=== PATIENT | female | born 1940 | race Caucasian/White ===

== ENCOUNTER 2016-10-06 09:44 | Inpatient (IN) | payer OTHER ==
[~2016-10-06] VITALS: Ht 160 cm; Wt 75.3 kg
[2016-10-06] VITALS (10 sets, daily range): BP systolic 102–216; BP diastolic 50–93
[~2016-10-06 09:44] MED LIST: ACTOPLUS MET1 TABLET PO; ADULT LOW DOSE81 M1 PO; ALDACTONE25 MG PO; ANTIVERT25 MG PO; APRESOLINE50 M1 PO; ASPIR 8181 M1 PO; Ascorbic Acid,Ester- PO; CALCIUM 600 +1 EA12 PO; CALCIUM 600 WI1 EAC1 PO; CATAPRES0.2 MG PO; CATAPRES0.3 MG PO; CENTRUM SILVER1 EACH PO; CIPRO500 MG PO; CLONIDINE HCL0.1 MG PO; COREG CR80 MG PO; CRANBERRY200 MG PO; CRANBERRY500 M1 PO; Colace PO; Coreg PO; Dulcolax PO; ENDOCET 5-3251 EACH PO; FOLVITE1 M1 PO; Feosol PO; Glucophage PO; HYDRALAZINE HCL25 M1 PO; HYDRALAZINE HCL25 MG PO; LIPITOR80 MG PO; LOTREL 10/41 CAPSULE PO; LOVENOX40 MG/0.4 SC; PLAVIX75 MG PO; PROTONIX40 MG PO; SENOKOT S,PE1 TABLET PO; SPIRONOLACTONE25 MG PO; TEGRETOL XR400 MG PO; TEGRETOL-XR,CA400 MG PO; TEGretol-XR,Carbatro PO; TEKTURNA HCT1 TABLE3 PO; THERAGRAN1 TABLET PO; ZETIA10 MG PO; ZOLOFT100 MG PO; ZOLOFT50 M1 PO; ZOLOFT50 MG PO; Zoloft PO; [UNRECOGNIZED DRUG - OTHER] PO
[2016-10-06 10:30] LABS: HEMATOCRIT 30.2 % (36.0-46.0); MCH 30.7 PG (29.0-34.0); MCHC 33.1 G/DL (30.0-36.0); MCV 92.6 FL (83-99); MEAN PLAT.VOLUME 7.8 uM^3 (9.5-12.4); PLATELET COUNT 182 K/uL (156-360); RBC DIS.WIDTH-CV 15.1 % (11.8-14.6); RBC DIS.WIDTH-SD 51.1 % (39-53); RED BLOOD COUNT 3.26 M/uL (3.80-5.20); WHITE BLOOD COUNT 3.3 K/uL (4.1-10.2)
[2016-10-06 10:39] LABS: CHLORIDE 96 mEq/L (99-109); POTASSIUM 4.1 mEq/L (3.7-5.4); SODIUM 130 mEq/L (136-147)
[2016-10-06 10:40] LABS: GLUCOSE 97 mg/dL (70-99)
[2016-10-06 10:42] LABS: ANION GAP 9 MEQ/L (2-14)
[2016-10-06 10:44] LABS: GFR ESTIMATE (CALCULATED) > 59 mL/min/
[2016-10-06 10:45] LABS: UREA NITROGEN (BUN) 16 mg/dL (9-23)
[2016-10-06 10:51] LABS: TROP-I INTERPRETATION NEGATIVE; TROPONIN-I < 0.01 ng/mL (0.0-0.30)
[2016-10-06 11:59] LABS: ADD MIUA? NO; BILIRUBIN NEGATIVE; BLOOD NEGATIVE; COLOR YELLOW ((YELLOW)); GLUCOSE (STRIP) NEGATIVE; KETONES NEGATIVE; LEUKOCYTES NEGATIVE; NITRITE NEGATIVE; PROTEIN (STRIP) NEGATIVE; SPECIFIC GRAVITY 1.011 (1.000-1.030); UCUL ADDED? NO; UROBILINOGEN 0.2 MG/DL (0.2-1.0)
[2016-10-06 15:41] LABS: METH RESISTANT S AUREUS PCR NEGATIVE (NEGATIVE); PROBE CHECK PASS; SPECIMEN PROCESSING CONTROL PASS
[2016-10-07] VITALS (18 sets, daily range): BP systolic 91–142; BP diastolic 48–92
[2016-10-07 07:07] LABS: EOSINOPHIL (%) 0 % (0-5); HEMATOCRIT 30.3 % (36.0-46.0); IMMATURE GRANULOCYTE (%) 0.4 % (0.0-0.7); INSTRUMENT ABS NEUTROPHIL CT 3.5 K/uL; LYMPHOCYTE COUNT 0.5 K/uL (1.0-2.8); MCH 30.1 PG (29.0-34.0); MCHC 32.7 G/DL (30.0-36.0); MCV 92.1 FL (83-99); MEAN PLAT.VOLUME 7.9 uM^3 (9.5-12.4); MONOCYTE (%) 13.1 % (3-12); MONOCYTE COUNT 0.6 K/uL (0-0.8); NEUTROPHIL (%) 74.9 % (45-76); NEUTROPHIL COUNT 3.5 K/uL (1.8-6.4); PLATELET COUNT 148 K/uL (156-360); RBC DIS.WIDTH-CV 15.3 % (11.8-14.6); RBC DIS.WIDTH-SD 50.6 % (39-53); RED BLOOD COUNT 3.29 M/uL (3.80-5.20); WHITE BLOOD COUNT 4.7 K/uL (4.1-10.2)
[2016-10-07 07:29] LABS: ALKALINE PHOSPHATASE 57 IU/L (3-129); ANION GAP 8 MEQ/L (2-14); CHLORIDE 97 MEQ/L (99-109); GFR ESTIMATE (CALCULATED) > 59 mL/min/; GLUCOSE 97 mg/dL (70-99); POTASSIUM 3.7 MEQ/L (3.7-5.4); SAMPLE HEMOLYSIS CHECK 0; SAMPLE ICTERIC CHECK 0; SAMPLE LIPEMIA CHECK 0; SODIUM 132 MEQ/L (136-147); TOTAL BILIRUBIN 0.4 MG/DL (0.0-1.0); UREA NITROGEN (BUN) 13 mg/dL (9-23)
[2016-10-08 00:03] VITALS: BP 141/65
[2016-10-08 08:15] VITALS: BP 150/69
[2016-10-08 11:58] VITALS: BP 120/55
[2016-10-09] MEDS ORDERED: MICROZIDE12.5 M1 PO (00:03)
== END 2016-10-08 14:22 | disposition home or self-care (01) | DRG 83 ==
LOC: EME → EDBD 09:44 → EME 09:44 → 4WEST 12:18 → EDOF 12:18 → ENRESERV 12:30 → 4WEST 13:54 → ENRESERV 10-07 17:21 → 3EAST 10-07 19:37
PROVIDERS: Emergency Medicine; Internal Medicine Critical Care Medicine
DX: S06.5X9A Traumatic subdural hemorrhage with loss of consciousness of unspecified duration, initial encounter (principal); E11.9 Type 2 diabetes mellitus without complications; E87.1 Hypo-osmolality and hyponatremia; G40.909 Epilepsy, unspecified, not intractable, without status epilepticus; I10 Essential (primary) hypertension; E78.5 Hyperlipidemia, unspecified; I25.10 Atherosclerotic heart disease of native coronary artery without angina pectoris; K21.9 Gastro-esophageal reflux disease without esophagitis; S61.411A Laceration without foreign body of right hand, initial encounter; W10.9XXA Fall (on) (from) unspecified stairs and steps, initial encounter; Z79.02 Long term (current) use of antithrombotics/antiplatelets; Z79.82 Long term (current) use of aspirin; Z82.49 Family history of ischemic heart disease and other diseases of the circulatory system; Z85.42 Personal history of malignant neoplasm of other parts of uterus; Z87.891 Personal history of nicotine dependence; Z92.3 Personal history of irradiation; Z95.5 Presence of coronary angioplasty implant and graft; M54.2 Cervicalgia; R07.9 Chest pain, unspecified; M25.551 Pain in right hip; M54.5 Low back pain
CPT/HCPCS: 70450; 71010; 72220; 73130; 80048; 80053; 81003; 84484; 85025; 85027; 87641; 93005; 99281; 99285; J2270

== ENCOUNTER 2016-10-08 18:34 | Observation (INO) | payer OTHER ==
[~2016-10-08] VITALS: Ht 160 cm; Wt 65.1 kg
[2016-10-08 19:04] LABS: EOSINOPHIL (%) 0 % (0-5); HEMATOCRIT 31.3 % (36.0-46.0); IMMATURE GRANULOCYTE (%) 0.7 % (0.0-0.7); IMMATURE GRANULOCYTE COUNT 0.1 K/uL; INSTRUMENT ABS NEUTROPHIL CT 6.2 K/uL; LYMPHOCYTE COUNT 0.6 K/uL (1.0-2.8); MCH 30.6 PG (29.0-34.0); MCHC 33.5 G/DL (30.0-36.0); MCV 91.3 FL (83-99); MEAN PLAT.VOLUME 8.1 uM^3 (9.5-12.4); MONOCYTE (%) 10.7 % (3-12); MONOCYTE COUNT 0.8 K/uL (0-0.8); NEUTROPHIL (%) 81.1 % (45-76); NEUTROPHIL COUNT 6.2 K/uL (1.8-6.4); PLATELET COUNT 155 K/uL (156-360); RBC DIS.WIDTH-CV 14.9 % (11.8-14.6); RBC DIS.WIDTH-SD 49.6 % (39-53); RED BLOOD COUNT 3.43 M/uL (3.80-5.20); WHITE BLOOD COUNT 7.6 K/uL (4.1-10.2)
[2016-10-08 19:13] LABS: INTER. NORMALIZED RATIO 1.1; PROTHROMBIN TIME 12.5 SEC (10.2-12.9)
[2016-10-08 19:15] LABS: CHLORIDE 96 mEq/L (99-109); POTASSIUM 3.6 mEq/L (3.7-5.4); SODIUM 130 mEq/L (136-147)
[2016-10-08 19:19] LABS: ANION GAP 10 MEQ/L (2-14); TOTAL BILIRUBIN 0.3 mg/dL (0.0-1.0)
[2016-10-08 19:21] LABS: ALKALINE PHOSPHATASE 64 IU/L (3-129); GFR ESTIMATE (CALCULATED) > 59 mL/min/
[2016-10-08 19:23] LABS: DIRECT BILIRUBIN 0.2 mg/dL (0.0-0.3)
[2016-10-08 19:27] LABS: GLUCOSE 171 mg/dL (70-99); TROP-I INTERPRETATION NEGATIVE; TROPONIN-I < 0.01 ng/mL (0.0-0.30); UREA NITROGEN (BUN) 22 mg/dL (9-23)
[2016-10-08 21:53] LABS: ADD MIUA? NO; BILIRUBIN NEGATIVE; BLOOD NEGATIVE; COLOR YELLOW ((YELLOW)); GLUCOSE (STRIP) 50; KETONES NEGATIVE; LEUKOCYTES NEGATIVE; NITRITE NEGATIVE; PROTEIN (STRIP) NEGATIVE; SPECIFIC GRAVITY 1.011 (1.000-1.030); UCUL ADDED? NO; UROBILINOGEN 0.2 MG/DL (0.2-1.0)
[2016-10-08 23:27] VITALS: BP 147/67
[2016-10-09] MEDS ORDERED: MICROZIDE12.5 M1 PO (00:03)
[2016-10-09 04:00] VITALS: BP 160/70
[2016-10-09 07:19] VITALS: BP 163/74
== END 2016-10-09 11:52 | disposition home or self-care (01) ==
LOC: EME 18:34 → EDOF 22:00 → 5WEST 22:00 → EDOF 22:00 → ENRESERV 22:03 → 5WEST 23:09
PROVIDERS: Emergency Medicine
DX: R55 Syncope and collapse (principal); G40.909 Epilepsy, unspecified, not intractable, without status epilepticus; S06.5X0D Traumatic subdural hemorrhage without loss of consciousness, subsequent encounter; I10 Essential (primary) hypertension; E11.9 Type 2 diabetes mellitus without complications; I25.10 Atherosclerotic heart disease of native coronary artery without angina pectoris; Z95.5 Presence of coronary angioplasty implant and graft; E87.1 Hypo-osmolality and hyponatremia; Z85.42 Personal history of malignant neoplasm of other parts of uterus; Z92.3 Personal history of irradiation; Z86.718 Personal history of other venous thrombosis and embolism; Z87.891 Personal history of nicotine dependence
CPT/HCPCS: 70450; 71020; 80048; 80076; 81003; 83880; 84484; 85025; 85610; 85730; 93005; 99281; 99285; G0378; J7030

== ENCOUNTER 2016-10-19 22:28 | Observation (INO) | payer OTHER ==
[~2016-10-19] VITALS: Ht 160 cm; Wt 68.4 kg
[~2016-10-19 22:28] MED LIST changes: +MICROZIDE12.5 M1 PO
[2016-10-19 23:32] LABS: HEMATOCRIT 29.3 % (36.0-46.0); MCH 30.6 PG (29.0-34.0); MCHC 33.1 G/DL (30.0-36.0); MCV 92.4 FL (83-99); MEAN PLAT.VOLUME 7.6 uM^3 (9.5-12.4); PLATELET COUNT 190 K/uL (156-360); RBC DIS.WIDTH-CV 15.1 % (11.8-14.6); RBC DIS.WIDTH-SD 51.2 % (39-53); RED BLOOD COUNT 3.17 M/uL (3.80-5.20); WHITE BLOOD COUNT 5.5 K/uL (4.1-10.2)
[2016-10-19 23:41] LABS: CHLORIDE 97 mEq/L (99-109); POTASSIUM 3.9 mEq/L (3.7-5.4); SODIUM 131 mEq/L (136-147)
[2016-10-19 23:44] LABS: ANION GAP 10 MEQ/L (2-14); GLUCOSE 96 mg/dL (70-99)
[2016-10-19] MEDS ORDERED: ACTOPLUS MET1 TABLET PO (23:46)
[2016-10-19] MEDS ORDERED: TEGRETOL-XR,CA400 MG PO (23:46)
[2016-10-19] MEDS ORDERED: ZOLOFT100 MG PO (23:46)
[2016-10-19] MEDS ORDERED: ZETIA10 MG PO (23:46)
[2016-10-19] MEDS ORDERED: MICROZIDE12.5 M1 PO (23:46)
[2016-10-19 23:47] LABS: GFR ESTIMATE (CALCULATED) > 59 mL/min/
[2016-10-19] MEDS ORDERED: LO-DOSE ASPIRIN81 M1 PO (23:47)
[2016-10-19] MEDS ORDERED: COREG CR80 MG PO (23:47)
[2016-10-19] MEDS ORDERED: APRESOLINE25 MG PO (23:47)
[2016-10-19] MEDS ORDERED: ALDACTONE25 MG PO (23:47)
[2016-10-19] MEDS ORDERED: LIPITOR80 MG PO (23:47)
[2016-10-19] MEDS ORDERED: PLAVIX75 MG PO (23:47)
[2016-10-19] MEDS ORDERED: LOTREL 10/41 CAPSULE PO (23:47)
[2016-10-19 23:48] LABS: UREA NITROGEN (BUN) 24 mg/dL (9-23)
[2016-10-19] MEDS ORDERED: CRANBERRY500 M2 PO (23:48)
[2016-10-19] MEDS ORDERED: DAILY VALUE1 EACH PO (23:48)
[2016-10-19] MEDS ORDERED: CALCIUM 600 MG1 EACH PO (23:48)
[2016-10-19 23:51] LABS: INTER. NORMALIZED RATIO 1.1; PROTHROMBIN TIME 11.7 SEC (10.2-12.9)
[2016-10-19 23:53] LABS: PTT 29.6 SEC (25-37); TROP-I INTERPRETATION NEGATIVE; TROPONIN-I < 0.01 ng/mL (0.0-0.30)
[2016-10-20 00:07] LABS: TOTAL BILIRUBIN 0.2 mg/dL (0.0-1.0)
[2016-10-20 00:08] LABS: ALKALINE PHOSPHATASE 95 IU/L (3-129)
[2016-10-20 00:10] LABS: DIRECT BILIRUBIN 0.1 mg/dL (0.0-0.3)
[2016-10-20 00:12] LABS: LIPASE 19 U/L (1.0-51.0)
[2016-10-20 02:33] VITALS: BP 162/70
[2016-10-20 05:54] LABS: TROP-I INTERPRETATION NEGATIVE; TROPONIN-I 0.03 ng/mL (0.0-0.30)
[2016-10-20 07:59] LABS: POINT-OF-CARE METER ID UU13113700
[2016-10-20 09:45] VITALS: BP 143/63
[2016-10-20 11:40] LABS: POINT-OF-CARE METER ID UU13113831
[2016-10-20 12:10] VITALS: BP 106/58
[2016-10-20 12:19] LABS: TROP-I INTERPRETATION NEGATIVE; TROPONIN-I 0.07 ng/mL (0.0-0.30)
[2016-10-20] MEDS ORDERED: PROTONIX40 MG PO (12:30)
== END 2016-10-20 15:55 | disposition home or self-care (01) ==
LOC: EME 22:28 → EDOF 10-20 00:52 → ENRESERV 10-20 00:55 → 5WEST 10-20 01:56
PROVIDERS: Emergency Medicine; Internal Medicine; Physician Assistant Medical
DX: R07.9 Chest pain, unspecified (principal); I25.10 Atherosclerotic heart disease of native coronary artery without angina pectoris; Z95.5 Presence of coronary angioplasty implant and graft; R60.0 Localized edema; K21.9 Gastro-esophageal reflux disease without esophagitis; K44.9 Diaphragmatic hernia without obstruction or gangrene; I10 Essential (primary) hypertension; E78.5 Hyperlipidemia, unspecified; E11.9 Type 2 diabetes mellitus without complications; G40.909 Epilepsy, unspecified, not intractable, without status epilepticus; Z85.42 Personal history of malignant neoplasm of other parts of uterus; Z92.3 Personal history of irradiation; Z86.718 Personal history of other venous thrombosis and embolism; K59.00 Constipation, unspecified; Z87.891 Personal history of nicotine dependence; Z82.49 Family history of ischemic heart disease and other diseases of the circulatory system; I62.01 Nontraumatic acute subdural hemorrhage; Z79.82 Long term (current) use of aspirin
CPT/HCPCS: 71020; 80048; 80076; 82948; 83690; 83880; 84484; 85027; 85610; 85730; 93005; 93970; 99281; 99285; G0378; J1940; S0028

== ENCOUNTER 2016-11-10 14:53 | Emergency (ER) | payer OTHER ==
[~2016-11-10] VITALS: Ht 160 cm; Wt 66.9 kg
[~2016-11-10 14:53] MED LIST changes: +APRESOLINE25 MG PO; +CALCIUM 600 MG1 EACH PO; +CRANBERRY500 M2 PO; +DAILY VALUE1 EACH PO; +LO-DOSE ASPIRIN81 M1 PO
[2016-11-10 14:57] VITALS: BP 174/81
== END 2016-11-10 15:51 | disposition home or self-care (01) ==
LOC: EME 14:53
DX: S50.812A Abrasion of left forearm, initial encounter (principal); W45.8XXA Other foreign body or object entering through skin, initial encounter; W20.8XXA Other cause of strike by thrown, projected or falling object, initial encounter; Z79.02 Long term (current) use of antithrombotics/antiplatelets; Z79.82 Long term (current) use of aspirin; Z95.5 Presence of coronary angioplasty implant and graft; Z95.1 Presence of aortocoronary bypass graft; I10 Essential (primary) hypertension; E78.5 Hyperlipidemia, unspecified; E11.9 Type 2 diabetes mellitus without complications; Z79.84 Long term (current) use of oral hypoglycemic drugs; Z87.891 Personal history of nicotine dependence
CPT/HCPCS: 99281; 99283